=== PATIENT | female | born 1935 | race Caucasian/White ===

== ENCOUNTER 2019-02-22 08:55 | Emergency (ER) | payer MEDICARE ==
[2019-02-22 10:28] VITALS: BP 158/76
--- NOTE | 2019-02-22 10:33 | UC ---
Skin Complaint HPI - History of Current Complaint Chief Complaint: [facility]CSkin Time Seen by Provider: 02/22/19 09:42 Stated Complaint: BEE STING Hx Obtained From: Patient Pain Intensity: 4 Pain Scale Used: 0-10 Numeric Aggravating Factor(s): Nothing Alleviating Factor(s): Nothing Associated Signs & Symptoms: Positive: Negative - Allergy/Home Medications Allergies/Adverse Reactions: Allergies Allergy/AdvReac Type Severity Reaction Status Date / Time No Known Allergies Allergy Verified 02/22/19 10:27 Home Medications: Home Medications Gabapentin 600 mg PO BID 02/22/19 [History Confirmed 02/22/19] PMH/Surg Hx/FS Hx/Imm Hx - Additional Past Medical History Additional PMH: neuropathy Previously Healthy: Yes Neurological History: Other - neuropathy - Surgical History Surgical History: None - Social History Alcohol Use: Occasionally Substance Use Type: None Smoking Status (MU): Never Smoked Tobacco Review of Systems All Other Systems Reviewed And Are Negative: Yes Constitutional: Negative: Fever Skin: Positive: Other - redness in R hand. Respiratory: Negative: Shortness Of Breath Cardiovascular: Negative: Palpitations Neurovascular: Negative: Decreased Sensation Musculoskeletal: Positive: Arthralgia - r hand, Edema. Negative: Decreased ROM , Myalgia Physical Exam Triage Information Reviewed: Yes Appearance: Well-Appearing Vital Signs: Initial Vital Signs Temp 98.8 F 02/22/19 10:25 Pulse 74 02/22/19 10:25 Resp 18 02/22/19 10:25 BP 158/76 02/22/19 10:25 Pulse Ox 98 02/22/19 10:25 Respiratory Exam: Normal Cardiovascular Exam: Normal Musculoskeletal: Positive: Edema @ - mild at R hand., Other: - R hand moderate swelling and redness, warm to touch. No pain with ROM Skin: Positive: Other - redness on palm and dorsal aspect of hand. Course/Dx - Course Course Of Treatment: R hand pain and swelling after bee sting 3 days ago. Initially there was pain and no swelling but developed redness. On exam there is mild swelling and sting site on palm noted. Will cover her for possible infxn and advised to cont. benadryl Q6hrs along w/ ranitidne. bp elevated and advised to speak to her pcp about this but otherwise vitals good. - Differential Diagnoses - Skin Complaint Differential Diagnoses: Cellulitis, Local Allergic Reaction, Other - Diagnoses Provider Diagnosis: Cellulitis Discharge ED - Sign-Out/Discharge Documenting (check all that apply): Patient Departure All imaging exams completed and their final reports reviewed: No Studies - Discharge Plan Condition: Good Disposition: HOME Prescriptions: Cephalexin CAP* [Keflex CAP*] 500 mg PO QID 7 Days #21 cap raNITIdine HCl [Ranitidine HCl] 150 mg PO DAILY 7 Days #7 capsule Patient Education Materials: Insect Bite or Sting (ED) Referrals: No Primary Care Phys,NOPCP [Primary Care Provider] - Additional Instructions: Please take benadryl more often. - Billing Disposition and Condition Condition: GOOD Disposition: Home - Attestation Statements Provider Attestation: I was available for consult. This patient was seen by the SHANTE[facility]. The patient was not presented to , seen by or examined by ms -David Lewis MD
== END 2019-02-22 10:41 | disposition home or self-care (01) ==
LOC: UCEAST 08:55
DX: L03.113 Cellulitis of right upper limb (principal)
CPT/HCPCS: 99212; G0463